=== PATIENT | male | born 1970 | race Caucasian/White ===

== ENCOUNTER 2021-04-16 05:24 | Emergency (ER) | payer OTHER ==
[2021-04-16 05:38] VITALS: BP 142/84; PULSE 92; RESP 24; TEMP 98
[2021-04-16] MEDS ORDERED: BACITRACIN OINT 1 EACH PACKET TOPICAL ONE (06:25)
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
== END 2021-04-16 07:35 | disposition home or self-care (01) ==
LOC: EC 05:24
DX: T25.212A Burn of second degree of left ankle, initial encounter (principal); T31.0 Burns involving less than 10% of body surface; F17.200 Nicotine dependence, unspecified, uncomplicated; F12.90 Cannabis use, unspecified, uncomplicated; Z88.2 Allergy status to sulfonamides; X12.XXXA Contact with other hot fluids, initial encounter
CPT/HCPCS: 99283

== ENCOUNTER 2022-01-16 00:15 | Emergency (ER) | payer OTHER ==
[2022-01-16 01:40] VITALS: BP 132/87; PULSE 74; RESP 16; TEMP 98.1
== END 2022-01-16 02:02 | disposition home or self-care (01) ==
LOC: EC 00:15
DX: Z02.83 Encounter for blood-alcohol and blood-drug test (principal)
CPT/HCPCS: 99499